=== PATIENT | female | born 1990 | race Caucasian/White ===

== ENCOUNTER → 2017-04-15 | Day surgery (SDC) | payer OTHER ==
[~2017-04-15] VITALS: Ht 160 cm; Wt 83.9 kg
[~2017-04-15] MED LIST: DESYREL 50 MG T50 MG PO; IBUPROFEN800 MG PO; LAMICTAL TAB 1100 MG PO; NORCO 5-325 TA1 EACH PO; OXYBUTYNIN CHLOR5 MG PO; PANTOPRAZOLE SO40 MG PO
== END | disposition home or self-care (01) ==
LOC: OR 06:09
PROVIDERS: Orthopaedic Surgery
PROC: 0XBJ0ZZ Excision of Right Hand, Open Approach (ICD-10-PCS; principal; 2017-04-15 08:15)
DX: M67.441 Ganglion, right hand (principal); M19.90 Unspecified osteoarthritis, unspecified site; K21.9 Gastro-esophageal reflux disease without esophagitis; F17.210 Nicotine dependence, cigarettes, uncomplicated; Z79.1 Long term (current) use of non-steroidal anti-inflammatories (NSAID); Z79.899 Other long term (current) drug therapy
CPT/HCPCS: 84703; J0690; J2250; J3010; J7120